=== PATIENT | male | born 1960 | race Caucasian/White ===

== ENCOUNTER 2017-03-19 19:48 | Emergency (ER) | payer MEDICAID | END 2017-03-19 21:52 | disposition home or self-care (01) | LOC: D.ER 19:48 | DX: S80.02XA Contusion of left knee, initial encounter (principal); V43.52XA Car driver injured in collision with other type car in traffic accident, initial encounter; Y93.89 Activity, other specified; Y92.410 Unspecified street and highway as the place of occurrence of the external cause; S16.1XXA Strain of muscle, fascia and tendon at neck level, initial encounter; J44.9 Chronic obstructive pulmonary disease, unspecified ==

== ENCOUNTER 2017-05-18 13:09 | Emergency (ER) | payer MEDICAID ==
[2017-05-18 13:21] LABS: BASOPHILS 0.4 % (0-2); EOSINOPHILS 2.9 % (0-7); HEMATOCRIT 42.6 % (42.0-54.0); HEMOGLOBIN 14.6 g/dL (13.5-17.5); IMMATURE GRANULOCYTES 0.3 % (0-5); LYMPHOCYTES 20.4 % (15-50); MCH 29.9 pg (26.0-34.0); MCHC 34.3 g/dL (31.0-37.0); MCV 87.1 fL (80.0-100.0); MEAN PLATELET VOLUME 9.7 fL (7.4-10.4); MONOCYTES 6.5 % (2-11); NEUTROPHILS 69.5 % (40-80); RBC 4.89 10x6/uL (4.20-6.10); RDW 13.5 % (11.5-14.5); WBC 9.4 10x3/uL (4.8-10.8)
[2017-05-18 13:27] LABS: PLATELET COUNT 268 10x3/uL (130-400)
[2017-05-18 13:34] LABS: ALBUMIN 3.5 g/dL (3.4-5.0); ANION GAP 11.9 mmol/L (8-16); BILIRUBIN - TOTAL 0.65 mg/dL (0.2-1.3); CALCIUM 8.6 mg/dL (8.5-10.1); CREATININE - SERUM 1.1 mg/dL (0.6-1.3); POTASSIUM - SERUM 3.9 mmol/L (3.5-5.1); PROTEIN - SERUM 7.2 g/dL (6.4-8.2)
[2017-05-18 14:26] LABS: MAGNESIUM - SERUM 2.2 mg/dL (1.8-2.4)
[2017-05-18 15:42] LABS: APPEARANCE CLEAR (CLEAR); BILIRUBIN NEGATIVE (NEGATIVE); COLOR YELLOW (YELLOW); GLUCOSE NEGATIVE (NEGATIVE); KETONE NEGATIVE (NEGATIVE); NITRITE NEGATIVE (NEGATIVE); PROTEIN NEGATIVE (NEGATIVE); SPECIFIC GRAVITY 1.015 (1.005-1.020); UROBILINOGEN NORMAL (NORMAL)
[2017-05-18 15:43] LABS: BACTERIA FEW /hpf (NONE SEEN); RED CELLS - URINE OCC /hpf (0-5); WHITE CELLS - URINE 0-5 /hpf (0-5)
[2017-05-18 15:45] LABS: UDS - AMPHET NEGATIVE QUAL (NEGATIVE); UDS - BARB NEGATIVE QUAL (NEGATIVE); UDS - BENZO POSITIVE QUAL (NEGATIVE); UDS - COCAINE NEGATIVE QUAL (NEGATIVE); UDS - OPIATE NEGATIVE QUAL (NEGATIVE); UDS - PCP NEGATIVE QUAL (NEGATIVE); UDS - THC POSITIVE QUAL (NEGATIVE)
== END 2017-05-18 17:05 | disposition home or self-care (01) ==
LOC: D.ER 13:09
PROVIDERS: Emergency Medicine
DX: T42.4X1A Poisoning by benzodiazepines, accidental (unintentional), initial encounter (principal); T48.1X1A Poisoning by skeletal muscle relaxants [neuromuscular blocking agents], accidental (unintentional), initial encounter; Y92.89 Other specified places as the place of occurrence of the external cause; J44.9 Chronic obstructive pulmonary disease, unspecified; R00.0 Tachycardia, unspecified

== ENCOUNTER 2018-01-16 10:49 | Outpatient (CLI) | payer MEDICAID ==
[~2018-01-16] VITALS: Ht 177.8 cm; Wt 83.6 kg
--- NOTE | ~2018-01-16 | HEMODYNAMI ---
PATIENT:AROLDO LUKE MEDICAL RECORD: [id number] : 64 LOCATION:[facility]NEY ADMISSION DATE: 01/16/18 Generatedon:01/16/201814:55 Patient name: AROLDO LUKE Patient #: [id number] SSN: DO B: 1960 Date of study: 01/16/2018 Page: Of Hemodynamic Procedure Report Patient Data Patient Demographics Procedure consent was obtained First Name: AROLDO Gender: Male Last Name: TI : 1960 Patient #: [id number] Age: 57 year(s) Race: Unknown Additional ID: [id number] Contact details Address: [address] [place] [address] State: [place] City: [facility] Zip code: [address] Admission Admission Data Admission Date: 01/16/2018 Admission Time: 10:49 Height (in.): 62 BSA: 1.84 (m2) Height (cm.): 157.48 BMI: 33.65 (kg/m2) Weight (lbs.): 184 Weight (kg.): 83.46 Procedure Procedure Types Cath Procedure Diagnostic Procedure LHC LHC w/Coronaries PCI Procedure Coronary Stent Procedure Description Procedure Date Procedure Date: 01/16/2018 Procedure Start Time: 14:17 Procedure End Time: 14:52 Procedure Staff Name Function Hernandez Washburn MD Performing Physician Loraine Mendieta RT Monitor Farhat Valencia RN Nurse Hannah Beasley RT Scrub Procedure Data Cath Procedure Fluoroscopy Diagnostic fluoroscopy Total fluoroscopy Time: time: 14.7 min 14.7 min Diagnostic fluoroscopy Total fluoroscopy dose: 734 dose: 734 mGy mGy Contrast Material Contrast Material Type Amount (ml) Isovue 300 55 Entry Location Entry Primary Successful Side Size Upsize Upsize Entry Closure Francisco ccessful Closure Location (Fr) 1 (Fr) 2 (Fr) Remarks Device Remarks Radial Right 5 Fr Mechanical artery Compression Femoral Right 6 Fr Exoseal artery Short Estimated blood loss: 10 ml Diagnostic catheters Device Type Used For End Catheter Placement DIAGNOSTIC Saranac 110cm 5 Procedure Fr catheter ([id number]) DIAGNOSTIC Saranac 110cm 5 Procedure Fr catheter (621961) DIAGNOSTIC Pigtail 5Fr Procedure catheter ([id number]) Procedure Complications No complications Procedure Medications Medication Administration Route Dosage 0.9% NaCl I.V. 100 ml/hr Oxygen etCO2 Nasal cannula 2 l/min Heparin Flush Bag added to field 2 bags (1000units/500ml NS) Lidocaine 2% added to field 20 Radial Cocktail added to field 1 syringe (Verapomil 2mg/Nitro 400mcg/Heparin 1500units) Versed I.V. 2 mg Fentanyl I.V. 100 mcg Versed I.V. 2 mg Fentanyl I.V. 100 mcg Heparin Bolus I.V. 5000 units Integrilin (Bolus I.V. 7.3 ml 2mg/ml) Integrilin (Bolus wasted 2.7 ml 2mg/ml) Plavix P.O. 600 mg Hemodynamics Rest BSA: 1.84 (m2) O2 Consumption: Estimated: 250.24 (ml/min) O2 Consumption indexed : Estimated:136 (ml/min/m) Heart Rate: 0 (bpm) Pressure Samples Time Site Value (mmHg) Purpose Heart Use Rate(bpm) 14:28 AO 114/71(90) Snapshot 111 14:48 LV 133/10,11 Snapshot 108 Gradients Valve Time Site Site Mean SEP/DFP Peak To Heart Use 1 2 (mmHg) (sec/min) Peak Rate (mmHg) (bpm) Aortic 14:49 LV AO 113 Snapshots Pre Cath Intra NCS Post Cath Vital Signs Time Heart Resp SPO2 etCO2 NIBP (mmHg) Rhythm Pain Sedation Rate (ipm) (%) (mmHg) Status Level (bpm) 13:57:33 100 25 100 0 149/82(111) NSR 0 (11) 10(A) , No pain 14:01:55 98 30 100 15.9 144/82(111) NSR 0 (11) 10(A) , No pain 14:06:11 105 14 97 32.5 135/79(105) NSR 0 (11) 10(A) , No pain 14:10:29 109 20 94 31 138/77(104) NSR 0 (11) 10(A) , No pain 14:14:47 107 19 94 32.5 136/72(111) NSR 0 (11) 10(A) , No pain 14:18:59 118 19 98 25.7 107/66(84) NSR 0 (11) 10(A) , No pain 14:23:01 108 16 96 35.5 112/79(101) NSR 0 (11) 10(A) , No pain 14:27:13 109 12 96 30.2 131/68(96) NSR 0 (11) 10(A) , No pain 14:31:24 109 15 97 30.2 134/76(101) NSR 0 (11) 10(A) , No pain 14:35:40 113 19 98 28 135/78(106) NSR 0 (11) 10(A) , No pain 14:39:52 110 14 91 31.7 137/73(111) NSR 0 (11) 10(A) , No pain 14:45:04 109 18 91 37.8 134/68(98) NSR 0 (11) 10(A) , No pain 14:49:22 112 10 94 33.2 149/76(100) NSR 0 (11) 10(A) , No pain Medications Time Medication Route Dose Verified Delivered Reason Not es Effectiveness by by 14:03:51 0.9% NaCl I.V. 100 Farhat Farhat Per physician ml/hr Annie Valencia RN RN 14:04:00 Oxygen etCO2 2 l/min Farhat Farhat Per physician Nasal Annie Valencia cannula RN RN 14:04:15 Heparin Flush added 2 bags Farhat Farhat used for Bag to Lorigan Lorigan procedure (1000units/500ml field DURAN RN NS) 14:04:27 Lidocaine 2% added 20ml Farhat Farhat for local to vial Lorigan Lorigan anesthetic field DURAN RN 14:15:57 Radial Cocktail added 1 Farhat Farhat used for (Verapomil to syringe Lorigan Lorigan procedure 2mg/Nitro field DURAN RN 400mcg/Heparin 1500units) 14:16:51 Versed I.V. 2 mg Farhat Farhat for sedation Annie Valencia RN RN 14:16:59 Fentanyl I.V. 100 mcg Farhat Farhat for sedation Annie Valencia RN RN 14:20:40 Versed I.V. 2 mg Farhat Farhat for sedation Annie Valencia RN RN 14:36:02 Fentanyl I.V. 100 mcg Farhat Farhat for sedation Annie Valencia RN RN 14:40:19 Heparin Bolus I.V. 5000 Farhat Farhat for units Annie Valencia anticoagulation RN RN 14:41:51 Integrilin I.V. 7.3 ml Farhat Farhat for (Bolus 2mg/ml) Annie Valencia antiplatelet RN RN therapy 14:42:00 Integrilin wasted 2.7 ml Farhat Farhat to sharp's (Bolus 2mg/ml) Annie Valencia RN, RN 14:49:35 Plavix P.O. 600 mg Farhat Farhat for Annie Valencia antiplatelet RN RN therapy Procedure Log Time Note 13:53:35 Patient Height : 62 inches 13:53:38 Patient Weight : 184 lbs 13:55:37 Diagnostic Cath status Elective 13:55:41 Farhat Valencia RN sent for patient. Start room use. 13:55:42 Time tracking: Regular hours (M-F 7:00 - 5:00) 13:55:47 Plan of Care:Hemodynamics will remain stable., Cardiac rhythm will remain stable., Comfort level will be maintained., Respiratory function will remain adequate., Patient/ family verbilizes understanding of procedure., Procedure tolerated without complication., Recovers from procedure without complications.. 13:56:01 Patient received from Pre/Post Procedure Room to CCL 1 Alert and oriented. Tansferred to table in Supine position. 13:56:14 Warm blankets applied, and amie hugger turned on for patient comfort. 13:56:18 Signed procedure consent form obtained from patient. 13:56:19 ECG and BP/O2 sat monitors applied to patient. 13:56:20 Vital chart was started 13:56:23 Baseline sample Acquired. 13:56:33 Rhythm: sinus rhythm 13:56:36 Full Disclosure recording started 13:56:56 H&P Date Dictated: 01/03/2018 Within 30 days and on chart., H&P Addendum completed by physician on day of procedure. (MUST COMPLETE FOR ALL OUTPATIENTS). 13:56:58 Pre-procedure instructions explained to patient. 13:57:01 Family in waiting room. 13:57:05 Patient NPO since Midnight. 13:57:16 Is the patient allergic to Iodine/contrast media? No. 13:57:43 Was the patient premedicated? Yes 13:57:55 Airway obstruction? Yes COPD 13:58:01 Sleep apnea? No 13:58:02 Snore? Yes 13:58:04 Patient diabetic? Yes. 13:58:06 If diabetic: On Metformin? No 13:58:17 Patient pain scale 0/10 ?. 13:58:26 IV patent on arrival in left forearm with 0.9% NaCl at [facility]. 13:58:35 Lab results completed and on chart. 13:58:43 Right groin area was prepped with chlora-prep and draped in sterile fashion 13:58:44 Alarms reviewed by R. N. 13:58:45 Sharps counted by scrub and verified by R.N. 13:58:50 Physician paged 13:59:33 --------ALL STOP TIME OUT------ 14:03:51 0.9% NaCl 100 ml/hr I.V. was administered by Farhat Valencia RN; Per physician; 14:04:00 Oxygen 2 l/min etCO2 Nasal cannula was administered by Farhat Valencia RN; Per physician; 14:04:15 Heparin Flush Bag (1000units/500ml NS) 2 bags added to field was administered by Farhat Valencia RN; used for procedure; 14:04:27 Lidocaine 2% 20ml vial added to field was administered by Farhat Valencia RN; for local anesthetic; 14:08:46 Baseline sample Acquired. 14:12:08 Procedure started. 14:12:10 ACIST Syringe (83955) opened to sterile field. 14:12:11 Bag Decanter () opened to sterile field. 14:12:11 Medline Cath Pack ([id number]) opened to sterile field. 14:12:12 DIAGNOSTIC WIRE .035 260cm J wire (607161) opened to sterile field. 14:12:13 ACIST Hand Control (26800) opened to sterile field. 14:12:13 ACIST Manifold (69092) opened to sterile field. 14:12:15 DIAGNOSTIC Multipack 5Fr catheter set (VL0604) opened to sterile field. 14:12:17 Tegaderm 4 x 4 (1626W) opened to sterile field. 14:12:21 SHEATH Prelude 5Fr 0.035 (BDA-0M-89-035) opened to sterile field. 14:15:57 Radial Cocktail (Verapomil 2mg/Nitro 400mcg/Heparin 1500units) 1 syringe added to field was administered by Farhat Valencia RN; used for procedure; 14:16:51 Versed 2 mg I.V. was administered by Farhat Valencia RN; for sedation; 14:16:59 Fentanyl 100 mcg I.V. was administered by Farhat Valencia RN; for sedation; 14:17:04 Local anesthetic to right femoral artery with Lidocaine 2% by Hernandez Washburn MD.INITIAL ACCESS ONLY 14:17:14 A 5 Fr sheath was inserted into the Right Radial artery 14:20:02 SHEATH 6Fr Prelude Radial ([id number]) opened to sterile field. 14:20:25 A DIAGNOSTIC Saranac 110cm 5 Fr catheter (884341) was advanced over the wire and used for Procedure. 14:20:40 Versed 2 mg I.V. was administered by Farhat Valencia RN; for sedation; 14:20:49 Use device set Radial Dx or PCI 14:21:19 ACIST Syringe (47036) opened to sterile field. 14:21:19 Medline Cath Pack ([id number]) opened to sterile field. 14:21:20 Bag Decanter (2002S) opened to sterile field. 14:21:21 DIAGNOSTIC WIRE .035 260cm J wire (294427) opened to sterile field. 14:21:22 ACIST Hand Control (48404) opened to sterile field. 14:21:23 ACIST Manifold (29204) opened to sterile field. 14:21:25 MBrace Wrist Support ([id number]) opened to sterile field. 14:27:49 A DIAGNOSTIC Saranac 110cm 5 Fr catheter (357629) was advanced over the wire and used for Procedure. 14:28:17 LCA angiography performed. 14:29:08 Catheter removed. 14:29:22 GUIDE 6FR EBU 3.5 catheter ([id number]) opened to sterile field. 14:30:15 GUIDE 6FR EBU 3.5 catheter ([id number]) opened to sterile field. 14:30:40 6 Fr XBLAD 3.5 guide catheter was inserted over the wire 14:31:16 Zero performed for pressure channel P1 14:31:19 Zero performed for pressure channel P1 14:33:13 Wire removed. 14:33:14 Guide catheter removed. 14:33:23 Local anesthetic to right femoral artery with Lidocaine 2% by Hernandez Washburn MD.ADDITIONAL ACCESS 14:34:03 A 6 Fr Short sheath was inserted into the Right Femoral artery 14:34:37 SHEATH Prelude 6Fr 0.035 (VWH-7D-73-035) opened to sterile field. 14:36:02 Fentanyl 100 mcg I.V. was administered by Farhat Valencia RN; for sedation; 14:36:14 j wire advanced. 14:40:19 Heparin Bolus 5000 units I.V. was administered by Farhat Valencia RN; for anticoagulation; 14:41:51 Integrilin (Bolus 2mg/ml) 7.3 ml I.V. was administered by Farhat Valencia RN; for antiplatelet therapy; 14:42:00 Integrilin (Bolus 2mg/ml) 2.7 ml wasted was administered by Farhat Valencia RN; to sharp's; 14:43:23 WHISPER 300cm guide wire ([id number]) opened to sterile field. 14:45:30 Place stent Inflation Number: 1 A MORA OTW 3.0 x 18 stent ([id number]) was prepped and advanced across the Mid LAD. The stent was deployed at 10 JEREMY for 0:17 (min:sec). 14:46:14 TR BAND Standard (SFR21UMI) opened to sterile field. 14:46:15 EXOSEAL 6Fr (EX600) opened to sterile field. 14:47:42 A DIAGNOSTIC Pigtail 5Fr catheter ([id number]) was advanced over the wire and used for Procedure. 14:49:35 Plavix 600 mg P.O. was administered by Farhat Valencia RN; for antiplatelet therapy; 14:50:11 Sheath removed intact; hemostasis achieved with Exoseal to the Right Femoral artery. 14:50:19 Sheath removed intact; hemostasis achieved with Mechanical Compression to the Right Radial artery. 14:50:22 Procedure ended.(Physican Out) 14:50:39 Fluoroscopy time 14.70 minutes. 14:50:44 Flurop Dose total: 734 14:50:44 Fluoroscopy dose: 734 mGy 14:50:50 Contrast amount:Isovue 300 55ml. 14:50:56 Sharps counted by scrub and verified by R.N. 14:51:01 TR band inflated with 12cc of air. 14:51:06 Post Procedure Pulses reassessed and unchanged 14:51:10 Post-procedure physical assessment completed. ASA score P 2 - A patient with mild systemic disease as per Hernandez Washburn MD. 14:51:14 Post procedure rhythm: unchanged. 14:51:17 Estimated blood loss: 10 ml 14:51:19 Post procedure instruction explained to patient.Patient verbalizes understanding. 14:51:34 Procedure type changed to Cath procedure, Diagnostic procedure, LHC, LHC w/Coronaries, PCI procedure, Coronary Stent 14:51:36 Procedure and supply charges have been captured, reviewed, submitted and are correct. 14:51:55 Procedure Complication : No complications 14:51:58 Vital chart was stopped 14:51:58 See physician's report for complete and final results. 14:52:00 Report given to Pre/Post Procedure Room. 14:52:04 Procedure ended. 14:52:04 Full Disclosure recording stopped 14:52:22 ACC-PCI Only Patient was given prescriptions, or instructed by Hernandez Washburn MD to start/continue the following medications upon discharge: Plavix 14:55:24 End room use (Document Last) Intervention Summary Intervention Notes Time ActionType Lesion and Equipment Action# Pressure Duration Attributes Used 14:45:30 Place stent Mid LAD MORA OTW 3.0 1 10 00:17 x 18 stent ([id number]) Device Usage Item Name Manufacture Quantity Catalog Number Hospital Part Current Minimal Lot# / Charge Number Stock Stock Serial# Code ACIST Syringe Acist 2 96615 931919 759930 584397 20 (57116) Medical Systems Inc Bag Decanter Microtek 2 2001S 026352 85343 316429 5 () Medical Inc. Medline Cath Cardinal 2 [id number] 847988 48640 139686 5 Pack Health ([id number]) DIAGNOSTIC WIRE [facility] [place] 2 689203 273711 760954 756774 30 .035 260cm J wire (849506) ACIST Hand Acist 2 12875 711108 027692 187538 5 Control (66028) Medical Systems Inc ACIST Manifold Acist 2 40333 287828 413640 921058 5 (94453) Medical Systems Inc DIAGNOSTIC Cardinal 1 HQ7152 764991 86869 813039 30 Multipack 5Fr Health catheter set (OA3689) Tegaderm 4 x 4 3M 1 1626W 281632 844722 566021 5 (1626W) SHEATH Prelude Merit 1 RFY-0D-91-035 478093 535783 192253 5 5Fr 0.035 Medical (TGN-1T-29-035) SHEATH 6Fr Merit 1 [id number] 729983 668886 948725 5 Prelude Radial Medical ([id number]) DIAGNOSTIC Terumo 2 40-5013 825384 023640 956461 5 Saranac 110cm 5 Fr catheter (430060) ra Wrist Advanced 1 140-0250-00 335839 65442 483506 5 Support Vascular ([id number]) Dynamics GUIDE 6FR EBU Medtronic 2 [id number] 751551 14798 412614 3 3.5 catheter (ID1IGN63) SHEATH Prelude Merit 1 PPW-7N-42-35 387734 4585655 869903 5 6Fr 0.035 Medical (ZHE-1S-91-035) WHISPER 300cm Hinson 1 [id number] 045751 316060 669962 5 guide wire Vascular ([id number]) MORA OTW 3.0 x Medtronic 1 [id number] 189464 9106256 099898 5 [id number] 18 stent ([id number]) TR BAND Terumo 1 PGW22-UPD 193108 169240 724678 40 Standard ([id number]) EXOSEAL 6Fr Cardinal 1 EX600 171079 964524 457612 10 (EX600) Health DIAGNOSTIC Cardinal 1 [id number] 044262 311274 786752 5 Pigtail 5Fr Health catheter (779245Y) Signature Audit [place] Stage Time Signature Unsigned Intra-Procedure 01/16/2018 Loraine Mendieta 2:55:43 PM RT(R) Signatures Monitor : Loraine Mendieta Signature : RT Date : Time : [facility] [address] [place] [address]
--- NOTE | ~2018-01-16 | OP ---
PATIENT NAME: AROLDO LUEK MEDICAL RECORD: [id number] :64 LOCATION:D.CAT ADMISSION DATE: SURGEON: SIERRA LEWIS MD DATE OF OPERATION: 01/16/2018 PROCEDURES: Left heart catheterization, selective coronary angiography, right femoral artery approach. CATHETERS: A 5-Malay sheath, 5/4 left and right Brenda, 5/4 pig. The procedure was well tolerated. The patient was returned to suarez, sheath removed. ExoSeal device was placed. FINDINGS: Left ventriculography in 30-degree TURK view. Normal wall motion. Normal systolic function. CORONARY ANATOMY: LEFT MAIN: Left main is patent and free of disease. LAD: LAD has a tight stenosis after takeoff of the first diagonal, 80%. CIRCUMFLEX: Free of disease. RIGHT CORONARY ARTERY: Has a diffuse stenosis of about 80% in the proximal portion. IMPRESSION AND PLAN: Intervention to the LAD and right at a later date. DESCRIPTION OF THE PROCEDURE: EB XB LAD guiding catheter provided excellent guide catheter support followed by 300 cm Whisper wire, which was placed across the tightly occluded LAD at the distal portion of vessel. Stent deployed was a 3.0 x 18 mm Roberto drug-eluting stent up to 18 atmospheres. Final angiography shows excellent resolution of 80% stenosis, no significant residual. MIRACLE flow was 3 throughout the procedure. Sheath was closed with ExoSeal device. Intervention of the right at a later date. TRANSINT:[id number] Voice Confirmation ID: [id number] DOCUMENT ID: [id number] SIERRA LEWIS MD at 0802 CC: [id number] DICTATION DATE: 01/16/18 1457 ENTERTAINMENT DIRECTOR: 01/16/18 2322 DEP CLI 01/16/18 [id number] [place] [address]
[2018-01-16] MEDS ORDERED: ALBUTEROL2.5 MG/3 M INH (11:03)
[2018-01-16] MEDS ORDERED: ZOCOR20 MG PO (11:03)
[2018-01-16] MEDS ORDERED: XANAX2 MG PO (11:04)
[2018-01-16] MEDS ORDERED: CYCLOBENZAPRINE10 MG PO (11:04)
[2018-01-16] MEDS ORDERED: TOPAMAX50 MG PO (11:05)
[2018-01-16] MEDS ORDERED: PROZAC20 MG PO (11:05)
[2018-01-16] MEDS ORDERED: ABILIFY10 MG PO (11:06)
[2018-01-16] MEDS ORDERED: ULTRAM50 MG PO (11:06)
[2018-01-16] MEDS ORDERED: MOBIC7.5 MG PO (11:06)
[2018-01-16] MEDS ORDERED: DESERYL50 M2 PO (11:07)
[2018-01-16] MEDS ORDERED: COMBIVENT RESPIM4 GM INH (11:07)
[2018-01-16] MEDS ORDERED: ALBUTEROL SULF8.5 GM INH (11:07)
[2018-01-16] MEDS ORDERED: THORAZINE50 MG PO ×2 (11:08→11:09)
[2018-01-16 11:17] VITALS: BP 104/80; Ht 177.8 cm; Wt 83.6 kg
[2018-01-16 11:27] LABS: BASOPHILS 0.5 % (0-2); EOSINOPHILS 3.3 % (0-7); HEMATOCRIT 44.6 % (42.0-54.0); HEMOGLOBIN 14.8 g/dL (13.5-17.5); IMMATURE GRANULOCYTES 0.4 % (0-5); LYMPHOCYTES 15.7 % (15-50); MCH 29.4 pg (26.0-34.0); MCHC 33.2 g/dL (31.0-37.0); MCV 88.5 fL (80.0-100.0); MEAN PLATELET VOLUME 9.9 fL (7.4-10.4); MONOCYTES 6.9 % (2-11); NEUTROPHILS 73.2 % (40-80); PLATELET COUNT 285 10x3/uL (130-400); RBC 5.04 10x6/uL (4.20-6.10); RDW 13.7 % (11.5-14.5)
[2018-01-16 11:42] LABS: ANION GAP 18.3 mmol/L (8-16); CARBON DIOXIDE 20.3 mmol/L (21.0-32.0); CREATININE - SERUM 1.1 mg/dL (0.6-1.3)
[2018-01-16 11:43] LABS: POTASSIUM - SERUM 4.6 mmol/L (3.5-5.1)
[2018-01-16] MEDS ORDERED: PLAVIX75 MG PO (15:13)
[2018-01-16] MEDS ORDERED: BAYER CHEWABLE81 MG PO (15:13)
== END 2018-01-16 19:40 | disposition home or self-care (01) ==
LOC: D.CATH 10:49
PROVIDERS: Internal Medicine Interventional Cardiology
DX: I25.110 Atherosclerotic heart disease of native coronary artery with unstable angina pectoris (principal); R94.39 Abnormal result of other cardiovascular function study

== ENCOUNTER → 2018-01-27 10:33 | Outpatient (CLI) | payer MEDICAID ==
[2018-01-16 11:17] VITALS: BMI 26.4
[~2018-01-27 10:33] MED LIST: ABILIFY10 MG PO; ALBUTEROL SULF8.5 GM INH; ALBUTEROL2.5 MG/3 M INH; BAYER CHEWABLE81 MG PO; COLACE100 MG PO; COMBIVENT RESPIM4 GM INH; CYCLOBENZAPRINE10 MG PO; DESERYL50 M2 PO; LOPRESSOR25 MG PO; MOBIC7.5 MG PO; PERCOCET 5-3251 TAB PO; PLAVIX75 MG PO; PROZAC20 MG PO; SYMBICORT 16010.2 GM INH; THORAZINE50 MG PO; TOPAMAX50 MG PO; ULTRAM50 MG PO; XANAX2 MG PO; ZOCOR20 MG PO
== END | disposition home or self-care (01) ==
LOC: D.US 10:33
DX: M79.604 Pain in right leg (principal); R60.0 Localized edema

== ENCOUNTER → 2018-01-30 08:04 | Outpatient (CLI) | payer MEDICAID ==
[2018-01-16 11:17] VITALS: BMI 26.4
== END | disposition home or self-care (01) ==
LOC: D.CATH 08:04
DX: I72.4 Aneurysm of artery of lower extremity (principal)

== ENCOUNTER 2018-01-31 05:05 | Inpatient (IN) | payer MEDICAID ==
[2018-01-30 12:38] LABS: HEMATOCRIT 36.8 % (42.0-54.0); MCH 29.5 pg (26.0-34.0); MCHC 32.6 g/dL (31.0-37.0); MCV 90.4 fL (80.0-100.0); MEAN PLATELET VOLUME 9.1 fL (7.4-10.4); RBC 4.07 10x6/uL (4.20-6.10); RDW 15.1 % (11.5-14.5)
[2018-01-30 12:53] LABS: ALBUMIN 3.7 g/dL (3.4-5.0); ANION GAP 18.6 mmol/L (8-16); BILIRUBIN - TOTAL 1.1 mg/dL (0.2-1.3); CALCIUM 9.3 mg/dL (8.5-10.1); CARBON DIOXIDE 20.2 mmol/L (21.0-32.0); CREATININE - SERUM 1.2 mg/dL (0.6-1.3); POTASSIUM - SERUM 3.8 mmol/L (3.5-5.1); PROTEIN - SERUM 7.8 g/dL (6.4-8.2)
[2018-01-30 13:03] LABS: APTT 29.2 SECONDS (22.8-39.4); INR 1.07 (0.85-1.17); PROTIME 13.5 SECONDS (11.6-15.0)
[2018-01-30 13:22] LABS: APPEARANCE CLEAR (CLEAR); BILIRUBIN NEGATIVE (NEGATIVE); COLOR YELLOW (YELLOW); GLUCOSE NEGATIVE (NEGATIVE); KETONE NEGATIVE (NEGATIVE); NITRITE NEGATIVE (NEGATIVE); PROTEIN NEGATIVE (NEGATIVE)
[~2018-01-31] VITALS: Ht 177.8 cm; Wt 72.6 kg
[2018-01-31] VITALS (28 sets, daily range): BP systolic 98–180; BP diastolic 47–107; BMI 26.3
--- NOTE | ~2018-01-31 | MORECARE ---
CASE MANAGEMENT DISCHARGE SUMMARY PATIENT: AROLDO LUKE UNIT: [id number] ADM DATE: 01/31/18 AGE: 57 : 64 SEX: M ROOM/BED: [facility] AUTHOR: JOSÉ MCDERMOTT PHYSICIAN: REFERRING PHYSICIAN: SHRUTI ROBERSON MD DATE OF SERVICE: 02/02/18 Discharge Plan Patient Name: AROLDO LUKE [facility] 1960 Planned Disposition: Home Anticipated Discharge Date: Discharge Date: 02/02/2018 Expected LOS: Initial Reviewer: [email or web address] Initial Review Date: 02/01/2018 Generated: 02/02/18 9:03 pm Patient Name: AROLDO LUKE Page 51272 at 2003 All edits/amendments must be made on the electronic document DICTATION DATE: 02/02/182001 ENVIRONMENTAL EDUCATOR: HALIMA 02/02/182001 RPT#: [id number] DC DATE:02/02/18 STATUS: DIS IN [facility] [address] [place] [address] END OF REPORT
--- NOTE | ~2018-01-31 | MORECARE ---
CASE MANAGEMENT DISCHARGE SUMMARY PATIENT: AROLDO LUKE UNIT: [id number] ADM DATE: 01/31/18 AGE: 57 : 64 SEX: M ROOM/BED: [facility] AUTHOR: BALDEMAR,DOC PHYSICIAN: REFERRING PHYSICIAN: SHRUTI ROBERSON MD DATE OF SERVICE: 02/02/18 Discharge Plan Patient Name: AROLDO LUKE Facility: [facility]:[place] : 1960 Planned Disposition: Home Anticipated Discharge Date: Discharge Date: 02/02/2018 Expected LOS: Initial Reviewer: [email or web address] Initial Review Date: 02/01/2018 Generated: 02/02/18 9:10 pm Comments DCP- Discharge Planning Updated by [email or web address]: Candida Murphy on 02/02/18 7:[address] LATE ENTRY 02/01/18 @1000 Patient Name: AROLDO LUKE Admission Status: Urgent Accout number: [id number] Admission Date: 01-31-2018 : 1960 Admission Diagnosis:ANEURYSM OF ARTERY OF LOWER EXTREMITY Attending: SHRUTI ROBERSON Current LOS: 2 Anticipated DC Date: Planned Disposition: Home Primary Insurance: MEDICAID [place] Discharge Planning Comments: CM met with patient at bedside after obtaining verbal consent. Patient states he plans on returning home after discharge. Patient states he will have family transport him home via private vehicle. Patient denies any discharge needs at this time. CM will continue to follow and assist as needed for discharge planning / needs. Sourcing Assistant: Candida Murphy DCPIA - Discharge Planning Initial Assessment Updated by [email or web address]: Candida Murphy on 02/02/18 8:04 pm * Is the patient Alert and Oriented? Yes * How many steps to enter\exit or inside your home? * PCP MARTINA * Pharmacy [facility] * Preadmission Environment Home Alone * ADLs Independent * Equipment Nebulizer * Other Equipment BACK BRACE * List name and contact numbers for known caregivers / representatives who currently or will assist patient after discharge: MYNOR LUKE [phone] * Verbal permission to speak to the caregivers and representatives has been obtained from the patient. Yes * Community resources currently utilized None * Additional services required to return to the preadmission environment? No * Can the patient safely return to the preadmission environment? Yes * Has this patient been hospitalized within the prior 30 days at any hospital? No Last DP export: 02/02/18 7:03 p Patient Name: AROLDO LUKE Page 71801 at 2010 All edits/amendments must be made on the electronic document DICTATION DATE: 02/02/182008 PLUG WIRER: HALIMA 02/02/182008 RPT#: [id number] DC DATE:02/02/18 STATUS: DIS IN [facility] [address] [place] [address] END OF REPORT
--- NOTE | ~2018-01-31 | OP ---
PATIENT NAME: AROLDO LUKE MEDICAL RECORD: [id number] :64 LOCATION:D.CVI D.CV04 ADMISSION DATE:01/31/18 SURGEON: JACOB ROBERSON MD DATE OF OPERATION: 01/31/2018 SURGEON: Jacob Roberson MD MACHINE MOVER: MYRIAM Soria OPERATION PERFORMED: Repair of right femoral pseudoaneurysm. PREOPERATIVE DIAGNOSIS: Right femoral pseudoaneurysm. POSTOPERATIVE DIAGNOSIS: Right femoral pseudoaneurysm. ANESTHESIA: General endotracheal anesthesia. ESTIMATED BLOOD LOSS: 500 cc with Cell Saver retransfusion. COMPLICATIONS: None. SPECIMENS: Laminated thrombus. CONDITION: Stable. DISPOSITION: ICU. OPERATIVE FINDINGS: Dense adhesions within the right groin, the external iliac was isolated behind the inguinal ligament for inflow control and a large pseudoaneurysm with laminated thrombus was identified as well as a hematoma more inferiorly with clotted blood. OPERATIVE INDICATION: Pseudoaneurysm status post cardiac catheterization with antiplatelet therapy. PROCEDURE IN DETAIL: The patient was brought to the operative suite. General anesthesia was obtained, the patient was prepped and draped. Vertical incision was made over the groin. Incision was taken down to subcutaneous tissue. The pseudoaneurysm was identified. The artery was dissected out. Sutures were used for control of blood. The inguinal ligament was retracted upwardly and working behind the inguinal ligament. The external iliac artery was encircled with a vessel loop. Brief inflow control was performed. The pseudoaneurysm was entered. Direct suture repair of the artery was performed. Inflow was returned. Several other small sutures were used for control of bleeding. Good Doppler signal distal to the repair site was performed, thorough irrigation was undertaken. Hemostasis was ensured. Surgicel was used. A drain was placed through a separate wound and the old clotted hematoma was removed. The wound was then closed in 2 layers and clips on the skin. Good Doppler pulses in the foot. The patient was taken to recovery room stable. TRANSINT:[id number] Voice Confirmation ID: [id number] DOCUMENT ID: [id number] OPERATIVE REPORT [id number] AROLDO LUKE JACOB ROBERSON MD at 0745 CC: SIERRA LEWIS MD and MARIE MACK MD [id number] DICTATION DATE: 01/31/18 1229 PLANT BUYER: 01/31/18 1243 ADM IN [facility] [address] [id number]
--- NOTE | ~2018-01-31 | HP ---
PATIENT: AROLDO LUKE MEDICAL RECORD: [id number] ACCOUNT: [id number] LOCATION:[place] [address] : [birth year] ADMISSION DATE: 01/31/18 PCP: MARIE MACK MD HISTORY AND PHYSICAL EXAMINATION AROLDO Kruse (57yo, M) ID# [id number]. Date/Time01/30/2018 09:17QQWQD1962Ser[facility] [[email or web address] Dept.NPP_[place] ClinicProviderDANIKATYA ROBERSON MDInsuranceMed Primary: [place]) Insurance # : [id number] Employer Name : DISABLED Prescription: [facility] MEDICAID ADMINISTRATION - Member is eligible. Chief Complaint Followup: Femoral false aneurysm PSEUDOANEURYSM Patient's Care Team Packaging Associate: SIERRA LEWIS MD Primary Care Provider: ABDI MACK MD: [address], [place] [address], , [facility] (ERX): [address] [facility] [address], , Vitals BP:138/70 sitting R arm 01/30/2018 09:53 amBP Cuff Size:adult 01/30/2018 09:53 amHR:78/REG 01/30/2018 09:54 amHt:5 ft 10 in 01/30/2018 09:54 amWt:183 lbs 01/30/2018 09:54 amBMI:26.3 01/30/2018 09:54 amAllergies Reviewed Allergies LATUDAMedications Reviewed Medications albuterol fwyhnyx87/26/18 enteredErika WatkinsALPRAZolam 2 mg tid1 enteredErika WatkinsARIPiprazole 20 MG01/27/18 enteredErika WatkinschlorproMAZINE 100 MG01/27/18 enteredErika WatkinsQUEtiapine 100 mg tablet Take 1 tablet(s) twice a day by oral route.01/27/18 enteredErika Watkinssimvastatin 20 MG01/27/18 enteredErika WatkinsSymbicort 160 mcg-4.5 mcg/actuation HFA aerosol inhaler Inhale 2 puff(s) twice a day by inhalation route.01/27/18 enteredErika Watkinstopiramate 50 mg tablet Take 1 tablet(s) twice a day by oral route.01/27/18 enteredErika YwdsgjrqsqRUQmir68/26/18 enteredErika WatkinsProblems Reviewed Problems 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 HPI 2 weeks status post intervention via right common femoral artery with XO seal closure Right groin pain, bruising right leg Preoperative angina symptoms resolved Outpatient Doppler, 5 cm pseudoaneurysm Denies claudication or symptoms of peripheral vascular disease, status post right foot surgery ROS Additionally reports: as reviewed in the chart with the patient ROS as noted in the HPI Physical Exam Patient is a 57-year-old male. Constitutional: General Appearance well nourished and developed and healthy-appearing. Level of Distress NAD. Ambulation ambulating normally. Cardiovascular: Apical Impulse not displaced or no thrill. Heart Auscultation no murmurs, rubs, or gallops and RRR. Arterial Pulses dorsalis pedis 2+ bilateral; pulsat ile mass right groin, bruising down the entire medial aspect of the right leg to the mid calf. Ecchymosis appears to be chronic. Edema no edema or varicosities. Lungs: Repiratory Effort no dyspnea. Percussion no hyperresonance or dullness or flatness. Aus cultation no wheezing, rhonchi, or rales / crackles and breathing sounds normal and good air movement. Abdomen: Bowl Sounds normal. Inspection and Palpation no tenderness, guarding, or masses and soft and non-distended. Ears, Nose, Throat: Hearing grossly normal hearing. Oropharynx: moist mucous membranes. Musculoskeletal System: Gait And Stance normal gait and stance. Digits and Nails normal nails and no cyanosis. Joints, Bones, and Muscles normal strength and movement of all extremities. Neurologic: Cranial Nerves grossly intact. Sensation grossly intact. Lymph Nodes: Lymph Nodes no cervical LAD, supraclavicular LAD, or inguinal LAD. Eyes: Lids and Conjunctivae no discharge or pallor and non-injected. Pupils PERRLA. Cornea grossly intact. EOM EOMI. Lens clear. Sclerae non-icteric. Neck: Neck no masses, enlarged lymph nodes, or carotid bruits and supple and trachea midline. Thyroid no enlargement or nodules and non-tender. Skin: Inspection and Palpation no rash, lesions, ulcers, or jaundice. Assessment / Plan 1. 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 Patient understands the risks of surgery and without surgery. He wishes repair. Plan for tomorrow. continue Plavix due to recent percutaneous coronary intervention SHRUTI ROBERSON MD at 0744 CC: [id number] DICTATION DATE: 01/30/18 09 TAX SPECIALIST: HALIMA 01/30/18 1447 ADM IN [facility] [address] [place] [address]
[~2018-01-31 05:05] MED LIST changes: -COLACE100 MG PO; -LOPRESSOR25 MG PO; -PERCOCET 5-3251 TAB PO; -SYMBICORT 16010.2 GM INH
[2018-01-31] MEDS ORDERED: SYMBICORT 16010.2 GM INH (06:12)
[2018-01-31 12:32] LABS: HEMATOCRIT 32.3 % (42.0-54.0); HEMOGLOBIN 10.7 g/dL (13.5-17.5)
[2018-02-01] VITALS (21 sets, daily range): BP systolic 98–150; BP diastolic 45–82; Ht 177.8 cm; Wt 72.6 kg
[2018-02-01 05:59] LABS: HEMATOCRIT 27.4 % (42.0-54.0); MCH 29.1 pg (26.0-34.0); MCHC 32.8 g/dL (31.0-37.0); MCV 88.7 fL (80.0-100.0)
[2018-02-01 06:02] LABS: RBC 3.09 10x6/uL (4.20-6.10)
[2018-02-01 06:13] LABS: ALKALINE PHOSPHATASE 83 U/L (46-116); BILIRUBIN - TOTAL 0.79 mg/dL (0.2-1.3); CALCIUM 7.8 mg/dL (8.5-10.1); CARBON DIOXIDE 24.1 mmol/L (21.0-32.0); CHLORIDE - SERUM 107 mmol/L (98-107); CREATININE - SERUM 0.9 mg/dL (0.6-1.3); GLUCOSE 106 mg/dL (74-106); POTASSIUM - SERUM 3.6 mmol/L (3.5-5.1); SODIUM 141 mmol/L (136-145); eGFR NON AFRICAN AMERICAN > 90 mL/min (90-120)
[2018-02-01 06:14] LABS: ALBUMIN 2.4 g/dL (3.4-5.0); ALT (SGPT) 18 U/L (10-68); CALC OSMOLALITY 279 mosm/kg (275-300); PROTEIN - SERUM 5.6 g/dL (6.4-8.2); UREA NITROGEN 9 mg/dL (7-18)
[2018-02-02] VITALS (10 sets, daily range): BP systolic 83–128; BP diastolic 43–57
[2018-02-02] MEDS ORDERED: LOPRESSOR25 MG PO (08:05)
[2018-02-02] MEDS ORDERED: COLACE100 MG PO (08:06)
[2018-02-02] MEDS ORDERED: PERCOCET 5-3251 TAB PO (08:08)
[2018-02-02 08:12] LABS: HEMATOCRIT 27.4 % (42.0-54.0); HEMOGLOBIN 8.8 g/dL (13.5-17.5)
== END 2018-02-02 11:09 | disposition home or self-care (01) | DRG 253 ==
LOC: D.CVICU 05:05 → D.SDCHOLD 05:05 → D.CVICU 08:33
PROVIDERS: Thoracic Surgery (Cardiothoracic Vascular Surgery)
PROC: 04QK0ZZ Repair Right Femoral Artery, Open Approach (ICD-10-PCS; principal; 2018-01-31 07:30)
DX: I72.4 Aneurysm of artery of lower extremity (principal); D62 Acute posthemorrhagic anemia; R00.0 Tachycardia, unspecified

== ENCOUNTER 2018-03-01 10:46 | Outpatient (CLI) | payer MEDICAID ==
[~2018-03-01] VITALS: Ht 177.8 cm; Wt 82.7 kg
--- NOTE | ~2018-03-01 | HEMODYNAMI ---
PATIENT:AROLDO LUKE MEDICAL RECORD: [id number] : 64 LOCATION:D.CAT ADMISSION DATE: 03/01/18 Generatedon:03/01/201813:29 Patient name: AROLDO LUKE Patient #: [id number] SSN: DO B: 1960 Date of study: 03/01/2018 Page: Of Hemodynamic Procedure Report Patient Data Patient Demographics Procedure consent was obtained First Name: AROLDO Gender: Male Last Name: TI : 1960 Middle Initial: JOHN Age: 57 year(s) Patient #: [id number] Race: Unknown Additional ID: [id number] Contact details Address: [address] [place] [address] State: [place] City: [facility] Zip code: [address] Admission Admission Data Admission Date: 03/01/2018 Admission Time: 10:46 Procedure Procedure Types Cath Procedure Diagnostic Procedure Sedation Charges Moderate Sedation up to 15 minutes PCI Procedure Coronary Stent Coronary Stent Initial Procedure Description Procedure Date Procedure Date: 03/01/2018 Procedure Start Time: 13:16 Procedure End Time: 13:28 Procedure Staff Name Function Hernandez Washburn MD Performing Physician Loraine Mendieta RT Monitor Farhat Valencia RN Nurse Hannah Beasley RT Scrub Procedure Data Cath Procedure Fluoroscopy Diagnostic fluoroscopy Total fluoroscopy Time: 2.2 time: 2.2 min min Diagnostic fluoroscopy Total fluoroscopy dose: 164 dose: 164 mGy mGy Contrast Material Contrast Material Type Amount (ml) Isovue 300 30 Entry Location Entry Primary Successful Side Size Upsize Upsize Entry Closure Succes sful Closure Location (Fr) 1 (Fr) 2 (Fr) Remarks Device Remarks Femoral Left 6 Fr Exoseal artery Short Estimated blood loss: 10 ml Procedure Complications No complications Procedure Medications Medication Administration Route Dosage 0.9% NaCl I.V. 100 ml/hr Oxygen etCO2 Nasal cannula 2 l/min Heparin Flush Bag added to field 2 bags (1000units/500ml NS) Lidocaine 2% added to field 20 Versed I.V. 2 mg Fentanyl I.V. Versed I.V. 2 mg Heparin Bolus I.V. 5000 units Hemodynamics Rest Heart Rate: 93 (bpm) Snapshots Pre Cath Intra NCS Post Cath Vital Signs Time Heart Resp SPO2 etCO2 NIBP Rhythm Pain Sedation Rate (ipm) (%) (mmHg) (mmHg) Status Level (bpm) 13:01:06 93 18 100 27.6 128/68(90) NSR 0 (11) 10(A) , No pain 13:05:20 95 28 100 21.6 131/68(94) NSR 0 (11) 10(A) , No pain 13:09:34 97 16 100 26.1 120/67(92) NSR 0 (11) 10(A) , No pain 13:13:43 101 13 100 18.7 118/63(83) NSR 0 (11) 10(A) , No pain 13:17:54 99 14 99 10.4 115/64(93) NSR 0 (11) 9(A) , No pain 13:22:03 89 12 96 29.1 103/57(76) NSR 0 (11) 10(A) , No pain 13:26:56 90 10 96 28.4 113/62(93) NSR 0 (11) 10(A) , No pain Medications Time Medication Route Dose Verified Delivered Reason Notes Effectiveness by by 12:53:26 0.9% NaCl I.V. 100 Farhat Farhat Per physician ml/hr Annie Valencia RN RN 12:53:35 Oxygen etCO2 2 Farhat Farhat Per physician Nasal l/min Annie Valencia cannula RN RN 12:53:46 Heparin Flush added 2 Farhat Farhat used for Bag to bags Annie Valencia procedure (1000units/500ml field DURAN RN NS) 12:54:02 Lidocaine 2% added 20ml Farhat Farhat for local to vial Annie Valencia anesthetic field DURAN RN 13:15:48 Versed I.V. 2 mg Farhat Farhat for sedation Annie Valencia RN RN 13:15:55 Fentanyl I.V. Farhat Farhat for sedation Annie Valencia RN RN 13:17:49 Versed I.V. 2 mg Farhat Farhat for sedation Annie Valencia RN RN 13:20:00 Heparin Bolus I.V. 5000 Farhat Farhat for units Annie Valencia anticoagulation RN storage engineer Log Time Note 12:49:07 Diagnostic Cath status Elective 12:49:09 Farhat Valencia RN sent for patient. Start room use. 12:49:11 Time tracking: Regular hours (M-F 7:00 - 5:00) 12:49:22 Plan of Care:Hemodynamics will remain stable., Cardiac rhythm will remain stable., Comfort level will be maintained., Respiratory function will remain adequate., Patient/ family verbilizes understanding of procedure., Procedure tolerated without complication., Recovers from procedure without complications.. 12:53:26 0.9% NaCl 100 ml/hr I.V. was administered by Farhat Valencia RN; Per physician; 12:53:35 Oxygen 2 l/min etCO2 Nasal cannula was administered by Farhat Valencia RN; Per physician; 12:53:46 Heparin Flush Bag (1000units/500ml NS) 2 bags added to field was administered by Farhat Valencia RN; used for procedure; 12:54:02 Lidocaine 2% 20ml vial added to field was administered by Farhat Valencia RN; for local anesthetic; 12:59:59 Patient received from Pre/Post Procedure Room to CCL 2 Alert and oriented. Tansferred to table in Supine position. 13:00:00 Warm blankets applied, and amie hugger turned on for patient comfort. 13:00:00 Correct patient and procedure confirmed by team. 13:00:02 Signed procedure consent form obtained from patient. 13:00:02 ECG and BP/O2 sat monitors applied to patient. 13:00:03 Vital chart was started 13:00:04 Baseline sample Acquired. 13:00:07 Rhythm: sinus rhythm 13:00:08 Full Disclosure recording started 13:00:11 H&P Date Dictated: 03/01/2018 Within 30 days and on chart., H&P Addendum completed by physician on day of procedure. (MUST COMPLETE FOR ALL OUTPATIENTS). 13:00:13 Pre-procedure instructions explained to patient. 13:00:13 Pre-op teaching completed and patient verbalized understanding. 13:00:14 Family in waiting room. 13:00:16 Patient NPO since Midnight. 13:00:18 Is the patient allergic to Iodine/contrast media? No. 13:00:19 Was the patient premedicated? No 13:00:20 Is patient on blood thinner?Yes 13:00:22 ACC The patient was administered the following blood thiners within the last 24 hours: ACCPlavix 13:00:37 Patient diabetic? No. 13:00:40 Previous problem with sedation/anesthesia? No ? 13:00:42 Snore? Yes 13:00:43 Sleep apnea? No 13:00:44 Deviated septum? No 13:00:44 Opens mouth fully? Yes 13:00:45 Sticks out tongue? Yes 13:00:49 Airway obstruction? Yes copd 13:00:52 Dentures? Yes out 13:00:55 Pre procedure: right dorsailis pedis pulse 2+ Normal; easily identifiable; not easily obliterated 13:00:57 Pre procedure: left dorsailis pedis pulse 2+ Normal; easily identifiable; not easily obliterated 13:01:02 Patient pain scale 0/10 ?. 13:01:09 IV patent on arrival in right forearm with 0.9% NaCl at [facility]. 13:01:12 Lab results completed and on chart. 13:01:15 Right groin area was prepped with chlora-prep and draped in sterile fashion 13:01:16 Alarms reviewed by R. N. 13:01:16 Sharps counted by scrub and verified by R.N. 13:13:09 Physician arrived 13:13:10 --------ALL STOP TIME OUT------ 13:13:10 Final Timeout: patient, procedure, and site verified with staff and physician. All members of the team are in agreement. 13:15:48 Versed 2 mg I.V. was administered by Farhat Valencia RN; for sedation; 13:15:55 Fentanyl I.V. was administered by Farhat Valencia RN; for sedation; 13:16:18 Left groin site verified by team. 13:16:30 Physical assessment completed. ASA score P 2 - A patient with mild systemic disease as per Hernandez Washburn MD. 13:16:34 Sedation plan: IV Moderate Sedation Medication:Versed, Fentanyl 13:16:39 Use device set Femoral Dx 13:16:42 Procedure started. 13:16:59 Local anesthetic to left femerol artery with Lidocaine 2% by Hernandez Washburn MD.INITIAL ACCESS ONLY 13:17:11 A 6 Fr Short sheath was inserted into the Left Femoral artery 13:17:47 Medline Cath Pack ([id number]) opened to sterile field. 13:17:47 DIAGNOSTIC WIRE .035 260cm J wire (072116) opened to sterile field. 13:17:49 Versed 2 mg I.V. was administered by Farhat Valencia RN; for sedation; 13:17:50 ACIST Syringe (29803) opened to sterile field. 13:17:51 Bag Decanter (2002S) opened to sterile field. 13:17:52 ACIST Hand Control (18934) opened to sterile field. 13:17:53 ACIST Manifold (08895) opened to sterile field. 13:17:55 Tegaderm 4 x 4 (1626W) opened to sterile field. 13:17:58 SHEATH 6FR [place] (IXD892) opened to sterile field. 13:17:59 WHISPER 300cm guide wire ([id number]) opened to sterile field. 13:17:59 INFLATOR Merit BasixCompak (ZN5737) opened to sterile field. 13:18:00 GUIDE 6FR HS I SH catheter ([id number]) opened to sterile field. 13:18:17 6 Fr HS1 guide catheter was inserted over the wire 13:18:49 Whisper wire advanced. 13:20:00 Heparin Bolus 5000 units I.V. was administered by Farhat Valencia RN; for anticoagulation; 13:21:01 Wire advanced across lesion. 13:23:14 Place stent Inflation Number: 1 A MORA RX 3.0 x 38 stent ([id number]) was prepped and advanced across the Prox RCA. The stent was deployed at 14 JEREMY for 0:30 (min:sec). 13:24:18 EXOSEAL 6Fr (EX600) opened to sterile field. 13:24:35 Sheath removed intact; hemostasis achieved with Exoseal to the Left Femoral artery. 13:26:05 Procedure ended.(Physican Out) 13:27:12 Fluoroscopy time 02.20 minutes. 13:27:16 Flurop Dose total: 164 13:27:16 Fluoroscopy dose: 164 mGy 13:27:19 Contrast amount:Isovue 300 30ml. 13:27:21 Sharps counted by scrub and verified by R.N. 13:27:25 Post-op/insertion site Left Femoral artery dressed using a 4 x 4 and Tegaderm. 13:27:28 Post Procedure Pulses reassessed and unchanged 13:27:35 Post-procedure physical assessment completed. ASA score P 2 - A patient with mild systemic disease as per Hernandez Washburn MD. 13:27:46 Post procedure rhythm: unchanged. 13:27:50 Estimated blood loss: 10 ml 13:27:52 Post procedure instruction explained to patient.Patient verbalizes understanding. 13:28:03 Procedure type changed to Cath procedure, Diagnostic procedure, Sedation Charges, Moderate Sedation up to 15 minutes, PCI procedure, Coronary Stent, Coronary Stent Initial 13:28:04 Procedure and supply charges have been captured, reviewed, submitted and are correct. 13:28:29 Procedure Complication : No complications 13:28:32 Vital chart was stopped 13:28:32 See physician's report for complete and final results. 13:28:34 Report given to Pre/Post Procedure Room. 13:28:38 Patient transfered to Pre/Post Procedure Room with Stretcher. 13:28:40 Procedure ended. 13:28:40 Full Disclosure recording stopped 13:28:50 End room use (Document Last) Intervention Summary Intervention Notes Time ActionType Lesion and Equipment Used Action# Pressure Duration Attributes 13:23:14 Place stent Prox RCA MORA RX 3.0 x 1 14 00:30 38 stent ([id number]) Device Usage Item Name Manufacture Quantity Catalog Hospital Part Current [facility] Lot# / Number Charge Number Stock Stock Serial# Code Medline Cath Medline 1 [id number] 502487 31350 602422 5 Pack ([id number]) DIAGNOSTIC [place] 1 933432 423186 903760 502220 30 WIRE .035 260cm J wire (183057) ACIST Syringe Acist 1 81950 781810 841493 153326 20 (97467) Medical Systems Inc Bag Decanter Microtek 1 2001S 986033 80484 425687 5 (2001S) Medical Inc. ACIST Hand Acist 1 22926 671408 852700 542875 5 Control Medical (76348) Systems Inc ACIST Manifold Acist 1 03455 307869 590683 304837 5 (92618) Medical Systems Inc Tegaderm 4 x 4 3M 1 1626W 571275 470217 575037 5 (1626W) SHEATH 6FR Terumo 1 [id number] 509475 474994 182049 40 [place] (TDI150) WHISPER 300cm Hinson 1 [id number] 356840 402180 793849 5 guide wire Vascular (2974317RT) INFLATOR Merit Merit 1 FG1871 647932 197869 229740 15 [facility]ix[facility] CenterLatinComics Medical (WM2986) GUIDE 6FR HS I Medtronic 1 [id number] 541418 97169 086697 1 SH catheter (IS7PATIA) MORA RX 3.0 x Medtronic 1 [id number] 156982 1726841 514571 5 [id number] 38 stent ([id number]) EXOSEAL 6Fr Cardinal 1 EX600 397322 685347 949659 10 (EX600) Health Signature Audit [place] Stage Time Signature Unsigned Intra-Procedure 03/01/2018 Loraine Mendieta 1:29:38 PM RT(R) Signatures Monitor : Loraine Mendieta Signature : RT Date : Time : [facility] [address], [place] [address]
--- NOTE | ~2018-03-01 | OP ---
PATIENT NAME: AROLDO LUKE MEDICAL RECORD: [id number] :64 LOCATION:D.CAT ADMISSION DATE: SURGEON: SIERRA LEWIS MD DATE OF OPERATION: 03/01/2018 DESCRIPTION OF PROCEDURE: After a 6-Burmese sheath was placed in the right femoral artery, Hockey stick with side hole has provided excellent guide catheter support followed by 300-cm Whisper wire, which was placed across the 90% diffusely stenosed right coronary artery down this portion of vessel. Stent deployed was a 3.0 x 30 mm Norton drug-eluting stent up to 14 atmospheres for 45 seconds. Final angiography shows excellent resolution of diffuse 90% stenosis, no significant residual. MIRACLE flow was 3 throughout the procedure. Heparin was used during the case. The patient was previously on Plavix. Sheath was closed with ExoSeal device. TRANSINT:[id number] Voice Confirmation ID: [id number] DOCUMENT ID: [id number] SIERRA LEWIS MD CC: [id number] DICTATION DATE: 03/01/18 1330 DATABASE ADMINISTRATION MANAGER: 03/01/18 1658 [facility] [address] [place] [id number]
[~2018-03-01 10:46] MED LIST changes: +COLACE100 MG PO; +LOPRESSOR25 MG PO; +PERCOCET 5-3251 TAB PO; +SYMBICORT 16010.2 GM INH
[2018-03-01 11:13] VITALS: BP 134/58; Ht 177.8 cm; Wt 82.7 kg
[2018-03-01 11:28] LABS: BASOPHILS 0.3 % (0-2); EOSINOPHILS 2.2 % (0-7); HEMATOCRIT 37.2 % (42.0-54.0); HEMOGLOBIN 12.2 g/dL (13.5-17.5); IMMATURE GRANULOCYTES 0.3 % (0-5); LYMPHOCYTES 15.8 % (15-50); MCH 28.4 pg (26.0-34.0); MCHC 32.8 g/dL (31.0-37.0); MCV 86.5 fL (80.0-100.0); MEAN PLATELET VOLUME 9.7 fL (7.4-10.4); MONOCYTES 6.9 % (2-11); NEUTROPHILS 74.5 % (40-80); PLATELET COUNT 352 10x3/uL (130-400); WBC 8.9 10x3/uL (4.8-10.8)
[2018-03-01 11:32] LABS: ANION GAP 13.3 mmol/L (8-16); CALCIUM 8.8 mg/dL (8.5-10.1); CARBON DIOXIDE 23.2 mmol/L (21.0-32.0); CREATININE - SERUM 1.1 mg/dL (0.6-1.3); POTASSIUM - SERUM 3.5 mmol/L (3.5-5.1)
== END 2018-03-01 17:40 ==
LOC: D.CATH 10:46
PROVIDERS: Internal Medicine Interventional Cardiology
DX: I25.119 Atherosclerotic heart disease of native coronary artery with unspecified angina pectoris (principal); Z01.812 Encounter for preprocedural laboratory examination

== ENCOUNTER → 2018-03-08 11:56 | Outpatient (CLI) | payer MEDICAID ==
[2018-03-01 11:13] VITALS: BMI 26.1
== END | disposition home or self-care (01) ==
LOC: D.US 11:56
DX: I72.9 Aneurysm of unspecified site (principal)

== ENCOUNTER → 2018-11-20 09:05 | Outpatient (CLI) | payer MEDICAID ==
[2018-03-01 11:13] VITALS: BMI 26.1
--- NOTE | 2018-11-30 08:42 | EC ---
PATIENT:AROLDO LUKE DATE OF SERVICE: 11/20/18 SEX: M MEDICAL RECORD: [id number] DATE OF : 64 [facility] AGE OF PATIENT: 58 ADMISSION DATE: 11/20/18 REFERRING PHYSICIAN: INTERPRETING PHYSICIAN: SIERRA LEWIS MD ECHOCARDIOGRAM REPORT ECHO CHARGES 4 ECHO COMPLETE Date: 11/20/18 CLINICAL DIAGNOSIS: EDEMA H/O HTN/CAD ECHOCARDIOGRAPHIC MEASUREMENTS (adult normal given) AC root (d.<3.7cm) 3.1 cm LV Septum d (<1.2 cm> 1.2 cm Valve Excursion 1.5 cm LV Septum (systole) 1.8 cm Left Atria (s.<4.0cm> 3.9 cm LVPW d(<1.2cm) 1.2 cm RV (d.<2.3cm) 1.9 cm LVPW (sytole) 2.0 cm LV diastole(<5.6CM) 5.2 cm MV E-F(>70mm/sec) cm LV systole 3.0 cm LVOT Diameter 2.0 cm MV exc.(>10mm) cm Est.ejection fraction (50-75%) % DOPPLER: LVIT cm/sec A 97.0 cm/sec E 122 cm/sec LA cm/sec RVSP 27.0 mmHg LVOT 97.0 cm/sec AOP1/2T m/s Asc. Ao 128 cm/sec RVOT 88.0 cm/sec RA cm/sec PA 139 cm/sec AV Gradient Peak 6.5 mmHg AV Mean 2.9 mmHg AV Area 2.2 cm MV Gradient Peak 5.7 mmHg MV Mean 2.3 mmHg MV Area cm COMMENTS: OP - HC Shorthand Teacher: Riaz SARGENTOE Master Glazier: 3 Dr. Wild TAPE# PACS Pericardial Effusion N DATE OF SERVICE: 11/20/2018 Adequate 2-D echo, color-flow and spectral Doppler, and M-mode. Borderline LVH. LV internal dimensions are normal. Wall motion is normal. EF is greater than or equal to 55%. Aortic valve is tricuspid. No evidence of stenosis by Doppler interrogation. Left atrium is normal at 3.9 cm. Mitral valve shows no prolapse. Trace MR. Right-sided chambers are grossly normal. Trace TR. ECHOCARDIOGRAM REPORT [id number] AROLDO LUKE TRANSINT:[id number] Voice Confirmation ID: [id number] DOCUMENT ID: [id number] SIERRA LEWIS MD at 0842 CC: [id number] DICTATION DATE: 11/21/18 1307 MIXING ROLL OPERATOR: 11/21/18 1343 DEP CLI 11/20/18 [place] [id number] [place] [id number]
== END | disposition home or self-care (01) ==
LOC: D.HCCARDIO 09:05
PROVIDERS: ATTEND Internal Medicine Interventional Cardiology
DX: I10 Essential (primary) hypertension (principal)

== ENCOUNTER → 2019-12-12 09:37 | Outpatient (CLI) | payer MEDICAID ==
[2018-03-01 11:13] VITALS: BMI 26.1
--- NOTE | ~2019-12-12 | EC ---
PATIENT:AROLDO LUKE DATE OF SERVICE: 12/12/19 SEX: M MEDICAL RECORD: [id number] DATE OF : 64 [facility]GE [facility] 59 ADMISSION DATE: 12/12/19 REFERRING PHYSICIAN: INTERPRETING PHYSICIAN: SIERRA LEWIS MD ECHOCARDIOGRAM REPORT ECHO CHARGES 4 ECHO COMPLETE Date: 12/12/19 CLINICAL DIAGNOSIS: CAD/ASSESS EF AND VALVES ECHOCARDIOGRAPHIC MEASUREMENTS (adult normal given) AC root (d.<3.7cm) 3.4 cm LV Septum d (<1.2 cm> 1.2 cm Valve Excursion 1.5 cm LV Septum (systole) 1.4 cm Left Atria (s.<4.0cm> 3.2 cm LVPW d(<1.2cm) 1.1 cm RV (d.<2.3cm) 3.1 cm LVPW (sytole) 1.4 cm LV diastole(<5.6CM) 4.6 cm MV E-F(>70mm/sec) cm LV systole 3.3 cm LVOT Diameter 1.9 cm MV exc.(>10mm) 1.3 cm Est.ejection fraction (50-75%) % DOPPLER: LVIT cm/sec A 92.0 cm/sec E 75.0 cm/sec LA cm/sec RVSP 17 mmHg LVOT 91 cm/sec AOP1/2T m/s Asc. Ao 122 cm/sec RVOT cm/sec RA cm/sec PA 130 cm/sec AV Gradient Peak 6.00 mmHg AV Mean 3.17 mmHg AV Area 2.3 cm MV Gradient Peak 4.07 mmHg MV Mean 2.28 mmHg MV Area cm COMMENTS: Formation Fracturing Operator: 2 MARGIE IVY Airport Shuttle Driver: 3 Dr. Wild TAPE# PACS Pericardial Effusion N DATE OF SERVICE: Adequate 2D, color flow imaging, spectral Doppler, and M-mode. No LVH. LV internal dimensions are normal. Wall motion is normal. EF is greater than or equal to 55%. Aortic valve is tricuspid. No evidence of stenosis by Doppler interrogation. Left atrium is normal at 3.2 cm. Mitral valve shows no prolapse. Trace MR. Right-sided chambers are grossly normal. Trace TR. ECHOCARDIOGRAM REPORT [id number] AROLDO LUKE NTS:[id number] Voice Confirmation ID: [id number] DOCUMENT ID: [id number] SIERRA LEWIS MD CC: [id number] DICTATION DATE: 12/13/19 1442 FARM CONTRACTOR: 12/13/192048 DEP CLI 12/12/19 [place] [id number] [place] [id number]
== END | disposition home or self-care (01) ==
LOC: D.HCCECHO 09:37
PROVIDERS: ATTEND Internal Medicine Interventional Cardiology
DX: I25.10 Atherosclerotic heart disease of native coronary artery without angina pectoris (principal)